=== PATIENT | male | born 1990 | race Caucasian/White ===

== ENCOUNTER 2018-03-16 15:48 | Emergency (ER) | payer OTHER ==
[2018-03-16 15:55] VITALS: BP 144/83
--- NOTE | 2018-03-16 16:07 | ER Document Report ---
HPI - HPI Patient complains to provider of: persistan ankle pain Onset: Other - 3 weeks Onset/Duration: Persistent Pain Level: 5 Context: 27 yo male with a female friend in the room states that he needs pain medication and recheck on an ankle that he fx from crush injury on the job in [facility] 3 weeks ago. The company sent him home without surgery bc we was positive on the drug test. Associated Symptoms: None Exacerbated by: Walking - not using the immobilizer or crutches anymore. 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 IN LAST 30 DAYS: No - MUSCULOSKELETAL/EXTREMETIES Musculoskeletal/Extremeties: MAEW, FROM, Tender - medial malleolus, Edema - NEURO Level of Consciousness: Alert Motor/Sensory: No Motor Deficit, No Sensory Deficit Course - Re-evaluation Re-evalutation: 03/16/18 17:[address] Edwards who recommends since his fracture was 3 weeks ago to continue to use crutches for 6 weeks with only toe touching no full weightbearing, follow -up with orthopedics, and also advised him that if he does not see an orthopedic with this nonunion fracture piece that he would develop arthritis in the future in this joint 03/16/18 pt got angry that he was not going to get opiate pain medication, would not take or use crutches, threw the paper and prescription on the floor and stormed out from the desk area in front of nurses and registration clerks. - Vital Signs Vital signs: Temp Pulse Resp BP Pulse Ox 98.7 F 88 14 144/83 H 99 03/16/18 15:53 03/16/18 15:53 03/16/18 15:53 03/16/18 15:53 03/16/18 15:53 Discharge - Discharge Clinical Impression: Subacute displaced medial malleolar fx Condition: Good Disposition: HOME, SELF-CARE Instructions: Acetaminophen, Use of Crutches ([facility]), Ibuprofen (General) ([facility]), Fractured Tibia (FORM[facility]) Additional Instructions: Continue using crutches for 3 more weeks Do not bear full weight on this right ankle Only toe touch with this ankle You need to see orthopedics for follow-up You will develop arthritis in this ankle joint in the future Prescriptions: Ibuprofen [Motrin 600 mg Tablet] 600 mg PO Q8HP PRN #30 tablet PRN Reason: Referrals: GUSTAVO MONTES MD [ACTIVE STAFF] - Follow up tomorrow (call for appointment this week)
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
== END 2018-03-16 17:50 | disposition home or self-care (01) ==
LOC: ER 15:48
DX: S82.51XK Displaced fracture of medial malleolus of right tibia, subsequent encounter for closed fracture with nonunion (principal); W20.8XXD Other cause of strike by thrown, projected or falling object, subsequent encounter; F17.200 Nicotine dependence, unspecified, uncomplicated
CPT/HCPCS: 99283